=== PATIENT | female | born 1995 | race Caucasian/White ===

== ENCOUNTER 2017-04-19 18:50 | Inpatient (IN) | payer MEDICAID ==
--- NOTE | 2017-04-19 19:10 | PCM.PREANE ---
Preanesthetic Assessment - Procedure Proposed Procedure: RADHA - Anesthesia/Transfusion/Family Hx Anesthesia History: No Prior Anesthesia Transfusion History: No Prior Transfusion(s) - Review of Systems General: No Symptoms Pulmonary: No Symptoms Cardiovascular: No Symptoms Gastrointestinal: No Symptoms Neurological: No Symptoms Other: Reports: None - Physical Assessment ASA Class: 1 Mental Status: Alert & Oriented x3 Dentition: Reports: Normal Dentition ROM/Head Extension: Full Lungs: Clear to Auscultation, Normal Respiratory Effort Cardiovascular: Regular Rate, Regular Rhythm - Allergies Allergies/Adverse Reactions: Allergies Allergy/AdvReac Type Severity Reaction Status Date / Time No Known Allergies Allergy Verified 02/08/17 15:35 - Blood Blood Available: Yes Product(s) Available: PRBC - Acknowledgements Anesthesia Type Planned: Epidural Pt an Appropriate Candidate for the Planned Anesthesia: Yes Alternatives and Risks of Anesthesia Discussed w Pt/Guardian: Yes Pt/Guardian Understands and Agrees with Anesthesia Plan: Yes PreAnesthesia Questionnaire - Past Health History Medical/Surgical History: Denies Medical/Surgical History HEENT History: Reports: None Cardiovascular History: Reports: None Respiratory History: Reports: None Gastrointestinal History: Reports: None Genitourinary History: Reports: None : 1 Para: 0 Musculoskeletal History: Reports: None Neurological History: Reports: None Psychiatric History: Reports: None Endocrine/Metabolic History: Reports: None Hematologic History: Reports: None Immunologic History: Reports: None - Past Surgical History Head Surgeries/Procedures: Reports: None
[2017-04-19] MEDS ORDERED: Water For Irrigation,Sterile 1,000 ML Container IRR PRN (19:19)
[2017-04-19] MEDS ORDERED: Nalbuphine 10 MG/1 ML Vial IVPUSH PRN (19:19)
[2017-04-19] MEDS ORDERED: Misoprostol 200 MCG Tab PO PRN (19:19)
[2017-04-19] MEDS ORDERED: Sodium Chloride 0.9% 2.5 ML Syringe FLUSH PRN (19:19)
[2017-04-19] MEDS ORDERED: Butorphanol 1 MG/ML SDV IVPUSH PRN (19:19)
[2017-04-19] MEDS ORDERED: Carboprost Tromethamine 250 MCG/1 ML Amp IM PRN (19:19)
[2017-04-19] MEDS ORDERED: Sodium Chloride 0.9% 10 ML Syringe FLUSH PRN (19:19)
[2017-04-19] MEDS ORDERED: Methylergonovine 0.2 MG/1 ML Amp IM PRN (19:19)
[2017-04-19] MEDS ORDERED: Lidocaine 1% 50 ML MDV INJECT PRN (19:19)
[2017-04-19] MEDS ORDERED: Oxytocin/0.9 % Sodium Chloride 30 UNIT/500 ML BAG IV SCH (19:30)
[2017-04-19] MEDS ORDERED: fentaNYL 100 MCG/2 ML SDV ONE (20:43)
[2017-04-19] MEDS ORDERED: Ropivacaine HCl/PF 100 ML ONE (20:43)
[2017-04-19] MEDS: Lactated Ringers 1,000 ML IV SCH ×2 (21:16→23:01)
[2017-04-20] MEDS ORDERED: Oxytocin/0.9 % Sodium Chloride 30 UNIT/500 ML BAG IV SCH (04:15)
[2017-04-20] MEDS ORDERED: Ropivacaine HCl/PF 100 ML ONE (07:30)
[2017-04-20] MEDS: Lactated Ringers 1,000 ML IV SCH (08:00)
[2017-04-20] MEDS ORDERED: Benzocaine/Menthol 20%-0.5% Spray 78 GM Cannister TOP PRN (11:59)
[2017-04-20] MEDS ORDERED: Ibuprofen 800 MG Tab PO PRN (11:59)
[2017-04-20] MEDS ORDERED: Docusate Sodium 100 MG Cap PO PRN (11:59)
[2017-04-20] MEDS ORDERED: Ibuprofen 400 MG Tab PO PRN (11:59)
[2017-04-20] MEDS ORDERED: Acetaminophen 500 MG Tab PO PRN (11:59)
[2017-04-20] MEDS ORDERED: Lanolin 100% Cream 7 GM Tube TOP PRN (11:59)
[2017-04-20] MEDS ORDERED: Witch Hazel Medicated Pads 40/Jar TOP PRN (11:59)
[2017-04-20] MEDS ORDERED: Bisacodyl 10 MG Supp RECTAL PRN (11:59)
[2017-04-20] MEDS: Acetaminophen/oxyCODONE 325-5 MG Tab PO PRN ×2 (13:43→20:22)
[2017-04-20] MEDS: Acetaminophen 500 MG Tab PO PRN (17:40)
--- NOTE | 2017-04-21 01:45 | OR ---
SURGEON: NANCY ALCOCER DATE OF PROCEDURE: 04/20/2017 PREOPERATIVE DIAGNOSIS: A 21-year-old, G1, P0, admitted in active labor, POSTOPERATIVE DIAGNOSIS: Status post normal spontaneous vaginal delivery, uncomplicated. FINDINGS: Live male , delivered at 11:32 a.m. was 8 and 9. Weight was 3590 grams. There was a cord noted around the neck. There was a first-degree laceration that was sutured also. 3 VC COMPLICATIONS: None. ESTIMATED BLOOD LOSS: 300. BRIEF HISTORY: I was notified the patient was admitted in active labor. The patient made normal progress in labor and i was notified the patient was fully dilated at around 11 o'clock. The patient pushed for about 30 minutes to 1 hour. PROCEDURE: With the patient's pushing effort, the patient delivered the head subsequently by the shoulders after reducing the cord around the neck . The shoulder was delivered and the body was also subsequently delivered. The infant was suctioned. The cord was clamped and cut, and infant was handed over to the nursery nurse. Then, the cord blood gas was also obtained . The placenta was then delivered via controlled cord traction and after delivery, the uterus was noted to be firm. Pitocin was started. Then, the perineum was inspected and first-degree laceration was noted and was repaired with 3-0 Vicryl. Hemostasis was noted. The patient tolerated the procedure well. All instrument and pad counts were correct x2. Dr. Alcocer was present for the entire procedure. JUWAN RENNER /[id number] JOSE RAFAEL
--- NOTE | 2017-04-21 03:56 | PCM.PNPP ---
- General Info Date of Service: 04/21/17 Admission Dx/Problem (Free Text): 21uo P1 s/p uncomplicated Subjective Update: Patient seen at bedside , has good pain control , normal lochia . denies any complains Functional Status: Reports: Pain Controlled, Tolerating Diet, Ambulating, Urinating - Review of Systems General: Reports: No Symptoms HEENT: Reports: No Symptoms Pulmonary: Reports: No Symptoms Cardiovascular: Reports: No Symptoms Gastrointestinal: Reports: No Symptoms Genitourinary: Reports: No Symptoms Musculoskeletal: Reports: No Symptoms Skin: Reports: No Symptoms Neurological: Reports: No Symptoms Psychiatric: Reports: No Symptoms - General Info Date of Service: 04/21/17 - Patient Data Vital Signs - Most Recent: Last Vital Signs Temp 36.9 C 04/20/17 19:18 Pulse 97 04/20/17 19:18 Resp 16 04/20/17 19:18 BP 107/60 04/20/17 19:18 Pulse Ox 97 04/20/17 19:18 Weight - Most Recent: 64.41 kg Med Orders - Current: Current Medications Acetaminophen (Tylenol Extra Strength) 500 mg PO Q4H PRN PRN Reason: Pain Acetaminophen (Tylenol Extra Strength) 1,000 mg PO Q4H PRN PRN Reason: Pain Last Admin: 04/20/17 17:40 Dose: 1,000 mg Benzocaine/Menthol (Dermoplast Pain Relief 20%-0.5% Orefield) 78 gm TOP ASDIRECTED PRN PRN Reason: Perineal Comfort Measure Last Admin: 04/20/17 13:15 Dose: 1 canister Bisacodyl (Dulcolax) 10 mg RECTAL .ONCE PRN PRN Reason: Constipation Docusate Sodium (Colace) 100 mg PO BID PRN PRN Reason: Constipation Last Admin: 04/20/17 22:41 Dose: 100 mg Emollient Ointment (Lansinoh Hpa) 0 gm TOP ASDIRECTED PRN PRN Reason: Sore Nipples Oxytocin/Sodium Chloride (Oxytocin 30 Unit/500 Ml-Ns) 30 unit in 500 mls @ 2 mls/hr IV TITRATE DEJON; 2 MUNITS/MIN PRN Reason: Protocol Last Infusion: 04/20/17 08:31 Dose: 6 munits/min, 6 mls/hr Ibuprofen (Motrin) 400 mg PO Q4H PRN PRN Reason: Pain Ibuprofen (Motrin) 800 mg PO Q6H PRN PRN Reason: Pain Last Admin: 04/20/17 13:13 Dose: 800 mg Oxycodone/Acetaminophen (Percocet 325-5 Mg) 1 - 2 tab PO Q6H PRN PRN Reason: pain Last Admin: 04/20/17 20:22 Dose: 2 tab Sodium Chloride (Saline Flush) 10 ml FLUSH ASDIRECTED PRN PRN Reason: Keep Vein Open Sodium Chloride (Saline Flush) 2.5 ml FLUSH ASDIRECTED PRN PRN Reason: Keep Vein Open Witch Arelis (Tucks) 1 pad TOP ASDIRECTED PRN PRN Reason: comfort care Last Admin: 04/20/17 20:24 Dose: 1 applic Discontinued Medications Butorphanol Tartrate (Stadol) 1 mg IVPUSH Q1H PRN PRN Reason: Pain Carboprost Tromethamine (Hemabate Ds) 250 mcg IM ASDIRECTED PRN PRN Reason: Post Hemorrhage Fentanyl (Sublimaze) Confirm Administered Dose 100 mcg .ROUTE .STK-MED ONE Stop: 04/19/17 20:44 Lactated Ringer's (Ringers, Lactated) 1,000 mls @ 150 mls/hr IV ASDIRECTED DEJON Last Admin: 04/20/17 08:00 Dose: 150 mls/hr Oxytocin/Sodium Chloride (Oxytocin 30 Unit/500 Ml-Ns) 30 unit in 500 mls @ 999 mls/hr IV TITRATE [facility] Ropivacaine (Naropin 0.2%) Confirm Administered Dose 100 mls @ as directed .ROUTE .STK-MED ONE Stop: 04/19/17 20:44 Ropivacaine (Naropin 0.2%) Confirm Administered Dose 100 mls @ as directed .ROUTE .STK-MED ONE Stop: 04/20/17 07:31 Lidocaine HCl (Xylocaine 1%) 50 ml INJECT .ONCE PRN PRN Reason: Laceration repair Methylergonovine Maleate (Methergine) 0.2 mg IM ASDIRECTED PRN PRN Reason: Post Hemorrhage Misoprostol (Cytotec) 200 mcg PO .ONCE PRN PRN Reason: Post Hemorrhage Nalbuphine HCl (Nubain) 10 mg IVPUSH Q1H PRN PRN Reason: Pain (severe 7-10) Sterile Water (Sterile Water For Irrigation) 1,000 ml IRR ASDIRECTED PRN PRN Reason: delivery Last Admin: 04/20/17 11:32 Dose: 1,000 ml - Infant Interaction Support Person: , Mother - Recovery Exam Fundal Tone: Firm Fundal Level: At Umbilicus Fundal Placement: Midline Lochia Amount: Scant, Small Lochia Color: Rubra/Red Perineum Description: Intact, Minimal Bruising/Swelling, Edematous Episiotomy/Laceration: Approximated Bladder Status: Nonpalpable Urinary Elimination: Voided - Exam General: Alert, Oriented Lungs: Clear to Auscultation, Normal Respiratory Effort Cardiovascular: Regular Rate, Regular Rhythm GI/Abdominal Exam: Normal Bowel Sounds Extremities: Normal Inspection Psy/Mental Status: Alert - Problem List & Annotations (1) Vaginal delivery SNOMED Code(s): 265244916 Code(s): O80 - ENCOUNTER FOR FULL-TERM UNCOMPLICATED DELIVERY Status: Acute Current Visit: Yes - Problem List Review Problem List Initiated/Reviewed/Updated: Yes - My Orders Last 24 Hours: My Active Orders 04/20/17 11:59 Patient Status [ADT] Routine May Shower [RC] ASDIRECTED Up ad Rona [RC] ASDIRECTED Vital Signs [RC] PER UNIT ROUTINE Acetaminophen [Tylenol Extra Strength] 1,000 mg PO Q4H PRN Acetaminophen [Tylenol Extra Strength] 500 mg PO Q4H PRN Benzocaine/Menthol [Dermoplast Pain Relief 20%-0.5% Orefield] 78 gm TOP ASDIRECTED PRN Bisacodyl [Dulcolax] 10 mg RECTAL .ONCE PRN Docusate Sodium [Colace] 100 mg PO BID PRN Ibuprofen [Motrin] 400 mg PO Q4H PRN Ibuprofen [Motrin] 800 mg PO Q6H PRN Lanolin [Lansinoh HPA] See Dose Instructions TOP ASDIRECTED PRN Witch Arelis [Tucks] 1 pad TOP ASDIRECTED PRN Assess Lochia [WOMSER] Per Unit Routine Assess Uterine Involution [WOMSER] Per Unit Routine Peripheral IV Discontinue [OM.PC] Routine Resuscitation Status Routine 04/20/17 12:06 Acetaminophen/oxyCODONE [Percocet 325-5 MG] 1 - 2 tab PO Q6H PRN 04/21/17 05:11 HEMOGLOBIN/HEMATOCRIT,HH [HEME] Routine - Assessment Assessment:: 21yo P1 s/p normal vaginal delivery uncomplicated - Plan Plan:: Pain control with OTC tylenol and motrin Encourage Nothing in Vagina for 6 week Call Hospital if fever > 101 , foul smelling lochia and abdominal pain
[2017-04-21] MEDS: Acetaminophen/oxyCODONE 325-5 MG Tab PO PRN (09:09)
--- NOTE | 2017-04-21 09:16 | PCM48HPAN ---
Post Anesthesia Note - EVALUATION WITHIN 48HRS OF ANESTHETIC Vital Signs in Normal Range: Yes Patient Participated in Evaluation: Yes Respiratory Function Stable: Yes Airway Patent: Yes Cardiovascular Function Stable: Yes Hydration Status Stable: Yes Pain Control Satisfactory: Yes Nausea and Vomiting Control Satisfactory: Yes Mental Status Recovered: Yes
[2017-04-21 11:17] VITALS: BP 123/68
[2017-04-21] MEDS: Acetaminophen 500 MG Tab PO PRN (13:17)
== END 2017-04-21 16:00 | disposition home or self-care (01) | DRG 775 ==
LOC: MW.OBCHECK 18:50 → MW.OB 18:54 → MW.OBCHECK 19:19 → MW.OB 19:19 → OBSVTOIN 04-20 11:59 → MW.OB 04-20 12:00
PROVIDERS: ADMIT Obstetrics & Gynecology; ATTEND Obstetrics & Gynecology
PROC: 10E0XZZ Delivery of Products of Conception, External Approach (ICD-10-PCS; principal; 2017-04-20)
PROC: 0HQ9XZZ Repair Perineum Skin, External Approach (ICD-10-PCS; 2017-04-20)
DX: O70.0 First degree perineal laceration during delivery (principal); O69.1XX0 Labor and delivery complicated by cord around neck, with compression, not applicable or unspecified; Z3A.39 39 weeks gestation of pregnancy; Z37.0 Single live birth
CPT/HCPCS: 36415; 59025; 59409; 85014; 85018; 85027; 86850; 86900; 86901; A9270-GY; J2590; J2795; J3010; J7120

== ENCOUNTER 2017-07-24 03:50 | Emergency (ER) | payer SELFPAY ==
--- NOTE | 2017-07-24 05:02 | EDM.PDOC ---
ED HPI GENERAL MEDICAL PROBLEM - General Chief Complaint: Respiratory Problem Stated Complaint: COUGHING Time Seen by Provider: 07/24/17 05:02 - History of Present Illness INITIAL COMMENTS - FREE TEXT/NARRATIVE: HISTORY AND PHYSICAL: History of present illness: Patient is a 21-year-old female presents with a concern of cough and cold symptoms over last several days she has an who has had similar she denies fever chills nausea vomiting diarrhea or other complaints Review of systems: As per history of present illness and below otherwise all systems reviewed and negative. Past medical history: As per history of present illness and as reviewed below otherwise noncontributory. Surgical history: As per history of present illness and as reviewed below otherwise noncontributory. Social history: No reported history of drug or alcohol abuse. Family history: As per history of present illness and as reviewed below otherwise noncontributory. Physical exam: HEENT: Atraumatic, normocephalic, pupils reactive, negative for conjunctival pallor or scleral icterus, mucous membranes moist, throat clear, neck supple, nontender, trachea midline. Lungs: Clear to auscultation, breath sounds equal bilaterally, chest nontender. Heart: S1S2, regular, negative for clicks, rubs, or JVD. Abdomen: Soft, nondistended, nontender. Negative for masses or hepatosplenomegaly. Negative for costovertebral tenderness. Pelvis: Stable nontender. Genitourinary: Deferred. Rectal: Deferred. Extremities: Atraumatic, negative for cords or calf pain. Neurovascular unremarkable. Neuro: Awake, alert, oriented. Cranial nerves II through XII unremarkable. Cerebellum unremarkable. Motor and sensory unremarkable throughout. Exam nonfocal. Diagnostics: Influenza screen chest x-ray Therapeutics: None Impression: # 1 viral syndrome Definitive disposition and diagnosis as appropriate pending reevaluation and review of above. throat Pain Score (Numeric/FACES): 7 - Related Data Allergies Allergy/AdvReac Type Severity Reaction Status Date / Time banana Allergy Swelling Verified 07/24/17 04:14 Home Meds: Home Meds . 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: Musculoskeletal History: Reports: None Neurological History: Reports: None Psychiatric History: Reports: None Endocrine/Metabolic History: Reports: None Hematologic History: Reports: None Immunologic History: Reports: None Oncologic (Cancer) History: Reports: None Dermatologic History: Reports: None - Infectious Disease History Infectious Disease History: Reports: None - Past Surgical History Head Surgeries/Procedures: Reports: None Social & Family History - Family History Family Medical History: Noncontributory - Tobacco Use Smoking Status *Q: Never Smoker Second Hand Smoke Exposure: No - Caffeine Use Caffeine Use: Reports: None - Recreational Drug Use Recreational Drug Use: No ED ROS GENERAL - Review of Systems Review Of Systems: ROS reveals no pertinent complaints other than HPI. ED EXAM, GENERAL - Physical Exam Exam: See Below (See dictation) Course - Vital Signs Last Recorded V/S: Last Vital Signs Temp 36.8 C 07/24/17 04:14 Pulse 107 H 07/24/17 04:14 Resp 18 07/24/17 04:14 BP 115/59 L 07/24/17 04:14 Pulse Ox 97 07/24/17 04:14 - Orders/Labs/Meds Orders: Active Orders 24 hr Category Date Time Status Chest 1V Frontal [CR] Stat Exams 07/24/17 04:12 Taken CULTURE STREP A CONFIRMATION [RM] Stat Lab 07/24/17 04:15 Results STREP SCRN A RAPID W CULT CONF [RM] Stat Lab 07/24/17 04:15 Results Departure - Departure Time of Disposition: 05:01 Disposition: Home, Self-Care 01 Condition: Good Clinical Impression: Viral syndrome - Discharge Information Referrals: PCP,None [Primary Care Provider] - Additional Instructions: The following information is given to patients seen in the emergency department who are being discharged to home. This information is to outline your options for follow-up care. We provide all patients seen in our emergency department with a follow-up referral. The need for follow-up, as well as the timing and circumstances, are variable depending upon the specifics of your emergency department visit. If you don't have a primary care physician on staff, we will provide you with a referral. We always advise you to contact your personal physician following an emergency department visit to inform them of the circumstance of the visit and for follow-up with them and/or the need for any referrals to a consulting specialist. The emergency department will also refer you to a specialist when appropriate. This referral assures that you have the opportunity for followup care with a specialist. All of these measure are taken in an effort to provide you with optimal care, which includes your followup. Under all circumstances we always encourage you to contact your private physician who remains a resource for coordinating your care. When calling for followup care, please make the office aware that this follow-up is from your recent emergency room visit. If for any reason you are refused follow-up, please contact the [facility] emergency department at and asked to speak to the emergency department charge nurse. Push fluids Motrin/Tylenol as directed follow-up private medical doctor as needed as discussed and return as needed as discussed - My Orders Last 24 Hours: My Active Orders 07/24/17 04:12 Chest 1V Frontal [CR] Stat 07/24/17 04:15 CULTURE STREP A CONFIRMATION [RM] Stat STREP SCRN A RAPID W CULT CONF [RM] Stat - Assessment/Plan Last 24 Hours: My Active Orders 07/24/17 04:12 Chest 1V Frontal [CR] Stat 07/24/17 04:15 CULTURE STREP A CONFIRMATION [RM] Stat STREP SCRN A RAPID W CULT CONF [RM] Stat
[2017-07-24 05:35] VITALS: BP 122/66
--- NOTE | 2017-07-26 16:59 | CR ---
EXAM DATE: 07/24/17 PATIENT'S AGE: 21 Patient: EMMIE SY Facility: [place], [place] Site . Site : 1997 Study: XRay Chest [id number]/20/2018 4:37:01 AM Ordering Physician: Doctor Louise Final Report: INDICATION: SOB, CP, congestion TECHNIQUE: Chest 1 view COMPARISON: None FINDINGS: Cardiovascular and mediastinum: Heart size and vasculature are normal in caliber and appearance. Mediastinum is within normal limits. Lungs and pleural space: No focal consolidation. No sign of pleural effusion. No pneumothorax. Bones and soft tissues: No significant findings. IMPRESSION: No acute cardiopulmonary disease Dictated by Nima Danielson MD @ 07/24/2017 4:55:55 AM Dictated by: Nima Danielson MD @ 07/24/2017 04:56:04 (Electronic Signature) Report Signed by Proxy. [email or web address]
== END 2017-07-24 05:28 | disposition home or self-care (01) ==
LOC: MW.ED 03:50
DX: B34.9 Viral infection, unspecified (principal)
CPT/HCPCS: 71045; 71045-26; 87081; 87804; 87880; 99283

== ENCOUNTER 2018-10-30 17:36 | Emergency (ER) | payer MEDICAID ==
[2018-10-30] MEDS ORDERED: Sodium Chloride 0.9% 1,000 ML IV ONE (17:38)
--- NOTE | 2018-10-30 17:40 | EDM.PDOC ---
ED HPI GENERAL MEDICAL PROBLEM - General Stated Complaint: dizzy, Time Seen by Provider: 10/30/18 17:37 Source of Information: Reports: Patient History Limitations: Reports: No Limitations - History of Present Illness INITIAL COMMENTS - FREE TEXT/NARRATIVE: HISTORY AND PHYSICAL: History of present illness: Patient is a 23-year-old female who presents to the emergency room with complaints of nausea, vomiting, low abdominal pain during . Patient reports that she believes she is 7 weeks . She had had multiple bouts of nausea and vomiting over the past several days. Concerned as to day she had noted some streaking of blood in her emesis. She denies any fever, chills, chest pain, shortness of breath or cough. She denies any diarrhea, constipation or dysuria. She has been eating and drinking appropriately. 3, para 1. LMP: September 04, 2018. Review of systems: As per history of present illness and below otherwise all systems reviewed and negative. Past medical history: As per history of present illness and as reviewed below otherwise noncontributory. Surgical history: As per history of present illness and as reviewed below otherwise noncontributory. Social history: See social history for further information Family history: As per history of present illness and as reviewed below otherwise noncontributory. Physical exam: General: Well-developed and well-nourished 23-year-old female. Alert and oriented. Nontoxic appearing and in no acute distress. HEENT: Atraumatic, normocephalic, pupils equal and reactive bilaterally, negative for conjunctival pallor or scleral icterus, mucous membranes moist, TMs normal bilaterally, throat clear, neck supple, nontender, trachea midline. No drooling or trismus noted. No meningeal signs. No hot potato voice noted. Lungs: Clear to auscultation, breath sounds equal bilaterally, chest nontender. Heart: S1S2, regular rate and rhythm without overt murmur Abdomen: Soft, nondistended, nontender. Negative for masses or hepatosplenomegaly. Negative for costovertebral tenderness. Pelvis: Stable nontender. Genitourinary: Deferred. Rectal: Deferred. Skin: Intact, warm, dry. No lesions or rashes noted. Extremities: Atraumatic, moves all extremities per self without difficulty or deficits, negative for cords or calf pain. Neurovascular unremarkable. Neuro: Awake, alert, oriented. Cranial nerves II through XII unremarkable. Cerebellum unremarkable. Motor and sensory unremarkable throughout. Exam nonfocal. Notes: Lab work is unremarkable urine culture has been added to the UA is there is a few bacteria. Positive , we will do a transvaginal OB ultrasound to confirm IUP. Lab work is unremarkable. Ultrasound shows an intrauterine gestational sac which contains a yolk sac but no definite pole. Could represent early IUP although blighted ovum in not excluded. Recommended correlation with beta hCG levels and follow-up with HEAD OF [employer]NER DEVELOPMENT. There is a complex right ovarian cyst. This information was shared with the patient. I did encourage her to follow-up with an HEAD OF PARTNER DEVELOPMENT for reevaluation and management. Supportive care measures were reviewed and discussed. Voices understanding and is agreeable to plan of care. Denies any further questions or concerns at this time. Diagnostics: CBC, CMP, UA, urine , transvaginal US, quant HCG Therapeutics: IV fluid, Zofran Prescription: Zofran Impression: Threatened Miscarriage Plan: 1. Pelvic rest until you follow-up with an HEAD OF [employer]NER DEVELOPMENT 2. Tylenol as needed for pain management. 3. Establish care and follow up with an OBGYN as we discussed. Return to the ED as needed and as discussed. Definitive disposition and diagnosis as appropriate pending reevaluation and review of above. Lower Abdominal Pain Score (Numeric/FACES): 7 - Related Data Allergies Allergy/AdvReac Type Severity Reaction Status Date / Time banana Allergy Swelling Verified 10/30/18 17:43 Home Meds: Home Meds . [No Known Home Meds] 07/24/17 [History] Past Medical History - Past Health History Medical/Surgical History: Denies Medical/Surgical History HEENT History: Reports: None Cardiovascular History: Reports: None Respiratory History: Reports: None Gastrointestinal History: Reports: None Genitourinary History: Reports: None HEAD OF PARTNER DEVELOPMENT History: Reports: Other HEAD OF PARTNER DEVELOPMENT History: A0 Musculoskeletal History: Reports: None Neurological History: Reports: None Psychiatric History: Reports: None Endocrine/Metabolic History: Reports: None Hematologic History: Reports: None Immunologic History: Reports: None Oncologic (Cancer) History: Reports: None Dermatologic History: Reports: None - Infectious Disease History Infectious Disease History: Reports: None - Past Surgical History Head Surgeries/Procedures: Reports: None Social & Family History - Family History Family Medical History: Noncontributory - Caffeine Use Caffeine Use: Reports: None ED ROS GENERAL - Review of Systems Review Of Systems: ROS reveals no pertinent complaints other than HPI. ED EXAM, DIZZINESS - Physical Exam Exam: See Below Course - Vital Signs Last Recorded V/S: Last Vital Signs Temp 98.1 F 10/30/18 17:44 Pulse 78 10/30/18 17:44 Resp 18 10/30/18 17:44 BP 109/70 10/30/18 17:44 Pulse Ox 99 10/30/18 17:44 - Orders/Labs/Meds Labs: Laboratory Tests 10/30/18 10/30/18 10/30/18 Range/Units 17:55 17:55 17:55 WBC 8.49 (4.0-11.0) K/uL RBC 5.02 (4.30-5.90) M/uL Hgb 15.5 (12.0-16.0) g/dL Hct 45.2 (36.0-46.0) % MCV 90.0 (80.0-98.0) fL MCH 30.9 (27.0-32.0) pg MCHC 34.3 (31.0-37.0) g/dL RDW Std Deviation 43.2 (28.0-62.0) fl RDW Coeff of Trista 13 (11.0-15.0) % Plt Count 250 (150-400) K/uL MPV 11.00 (7.40-12.00) fL Neut % (Auto) 60.4 (48.0-80.0) % Lymph % (Auto) 25.3 (16.0-40.0) % Travis % (Auto) 13.9 (0.0-15.0) % Eos % (Auto) 0.2 (0.0-7.0) % Baso % (Auto) 0.2 (0.0-1.5) % Neut # (Auto) 5.1 (1.4-5.7) K/uL Lymph # (Auto) 2.2 (0.6-2.4) K/uL Travis # (Auto) 1.2 H (0.0-0.8) K/uL Eos # (Auto) 0.0 (0.0-0.7) K/uL Baso # (Auto) 0.0 (0.0-0.1) K/uL Nucleated RBC % 0.0 /100WBC Nucleated RBCs # 0 K/uL Sodium (136-145) mmol/L Potassium (3.5-5.1) mmol/L Chloride (98-107) mmol/L Carbon Dioxide (21.0-32.0) mmol/L BUN (7.0-18.0) mg/dL Creatinine (0.6-1.0) mg/dL Est Cr Clr Drug Dosing mL/min Estimated GFR (MDRD) ml/min Glucose (74-106) mg/dL Calcium (8.5-10.1) mg/dL Total Bilirubin (0.2-1.0) mg/dL AST (15-37) IU/L ALT (14-63) IU/L Alkaline Phosphatase (46-116) U/L Total Protein (6.4-8.2) g/dL Albumin (3.4-5.0) g/dL Globulin (2.6-4.0) g/dL Albumin/Globulin Ratio (0.9-1.6) HCG, Quant mIU/mL Urine Color YELLOW Urine Appearance HAZY Urine pH 6.0 (5.0-8.0) Ur Specific Mchenry >= 1.030 (1.001-1.035) Urine Protein TRACE H (NEGATIVE) mg/dL Urine Glucose (UA) NEGATIVE (NEGATIVE) mg/dL Urine Ketones >=80 (NEGATIVE) mg/dL Urine Occult Blood SMALL H (NEGATIVE) Urine Nitrite NEGATIVE (NEGATIVE) Urine Bilirubin SMALL H (NEGATIVE) Urine Ictotest NEGATIVE Urine Urobilinogen 0.2 (<2.0) EU/dL Ur Leukocyte Esterase NEGATIVE (NEGATIVE) Urine RBC 0-2 (0-2/HPF) Urine WBC 0-3 (0-5/HPF) Ur Epithelial Cells MODERATE (NONE-FEW) Urine Bacteria FEW (NEGATIVE) Urine Mucus LIGHT (NONE-MOD) Urine HCG, Qual POSITIVE (NEGATIVE) 10/30/18 10/30/18 Range/Units 17:55 17:55 WBC (4.0-11.0) K/uL RBC (4.30-5.90) M/uL Hgb (12.0-16.0) g/dL Hct (36.0-46.0) % MCV (80.0-98.0) fL MCH (27.0-32.0) pg MCHC (31.0-37.0) g/dL RDW Std Deviation (28.0-62.0) fl RDW Coeff of Trista (11.0-15.0) % Plt Count (150-400) K/uL MPV (7.40-12.00) fL Neut % (Auto) (48.0-80.0) % Lymph % (Auto) (16.0-40.0) % Travis % (Auto) (0.0-15.0) % Eos % (Auto) (0.0-7.0) % Baso % (Auto) (0.0-1.5) % Neut # (Auto) (1.4-5.7) K/uL Lymph # (Auto) (0.6-2.4) K/uL Travis # (Auto) (0.0-0.8) K/uL Eos # (Auto) (0.0-0.7) K/uL Baso # (Auto) (0.0-0.1) K/uL Nucleated RBC % /100WBC Nucleated RBCs # K/uL Sodium 138 (136-145) mmol/L Potassium 3.3 L (3.5-5.1) mmol/L Chloride 102 (98-107) mmol/L Carbon Dioxide 20.3 L (21.0-32.0) mmol/L BUN 10 (7.0-18.0) mg/dL Creatinine 0.9 (0.6-1.0) mg/dL Est Cr Clr Drug Dosing 85.38 mL/min Estimated GFR (MDRD) > 60.0 ml/min Glucose 84 (74-106) mg/dL Calcium 9.3 (8.5-10.1) mg/dL Total Bilirubin 0.8 (0.2-1.0) mg/dL AST 16 (15-37) IU/L ALT 22 (14-63) IU/L Alkaline Phosphatase 79 (46-116) U/L Total Protein 8.6 H (6.4-8.2) g/dL Albumin 4.3 (3.4-5.0) g/dL Globulin 4.3 H (2.6-4.0) g/dL Albumin/Globulin Ratio 1.0 (0.9-1.6) HCG, Quant 98912.0 mIU/mL Urine Color Urine Appearance Urine pH (5.0-8.0) Ur Specific Mchenry (1.001-1.035) Urine Protein (NEGATIVE) mg/dL Urine Glucose (UA) (NEGATIVE) mg/dL Urine Ketones (NEGATIVE) mg/dL Urine Occult Blood (NEGATIVE) Urine Nitrite (NEGATIVE) Urine Bilirubin (NEGATIVE) Urine Ictotest Urine Urobilinogen (<2.0) EU/dL Ur Leukocyte Esterase (NEGATIVE) Urine RBC (0-2/HPF) Urine WBC (0-5/HPF) Ur Epithelial Cells (NONE-FEW) Urine Bacteria (NEGATIVE) Urine Mucus (NONE-MOD) Urine HCG, Qual (NEGATIVE) Meds: Medications Discontinued Medications Generic Name Dose Route Start Last Admin Trade Name Freq PRN Reason Stop Dose Admin Sodium Chloride 1,000 mls @ 999 mls/hr 10/30/18 17:38 10/30/18 18:00 Normal Saline IV 10/30/18 18:38 999 mls/hr STAT ONE Administration Ondansetron HCl 4 mg 10/30/18 17:50 10/30/18 18:00 Zofran IVPUSH 10/30/18 17:51 4 mg ONETIME ONE Administration Departure - Departure Time of Disposition: 19:43 Disposition: Home, Self-Care 01 Clinical Impression: Threatened - Discharge Information Instructions: Threatened Miscarriage, [id number] Referrals: PCP,None [Primary Care Provider] - Forms: ED Department Discharge Additional Instructions: The following information is given to patients seen in the emergency department who are being discharged to home. This information is to outline your options for follow-up care. We provide all patients seen in our emergency department with a follow-up referral. The need for follow-up, as well as the timing and circumstances, are variable depending upon the specifics of your emergency department visit. If you don't have a primary care physician on staff, we will provide you with a referral. We always advise you to contact your personal physician following an emergency department visit to inform them of the circumstance of the visit and for follow-up with them and/or the need for any referrals to a consulting specialist. The emergency department will also refer you to a specialist when appropriate. This referral assures that you have the opportunity for follow-up care with a specialist. All of these measure are taken in an effort to provide you with optimal care, which includes your follow-up. Under all circumstances we always encourage you to contact your private physician who remains a resource for coordinating your care. When calling for follow-up care, please make the office aware that this follow-up is from your recent emergency room visit. If for any reason you are refused follow-up, please contact the [facility] Emergency Department at and asked to speak to the emergency department charge nurse. [facility] [address] [place] [id number] [address] 1. Pelvic rest until you follow-up with an [employer] OF PARTNER DEVELOPMENT 2. Tylenol as needed for pain management. 3. Establish care and follow up with an OBGYN as we discussed. Return to the ED as needed and as discussed.
[2018-10-30] MEDS ORDERED: Ondansetron 4 MG/2 ML SDV IVPUSH ONE (17:50)
[2018-10-30 18:32] LABS: CHLORIDE,CL 102 mmol/L (98-107); SODIUM,NA 138 mmol/L (136-145)
--- NOTE | 2018-10-30 19:40 | US ---
INDICATION: Abdominal pain. Nausea and vomiting. TECHNIQUE: Transvaginal imaging. COMPARISON: None. FINDINGS: Eccentrically within the uterus, there is a fluid collection ( "sac") with apparent surrounding decidual reaction, likely representing an intrauterine gestational sac. Mean sac diameter is 1.46 cm, which corresponds to 6 weeks and 4 days. There does appear to be a yolk sac, although a pole is not definitely identified. No perigestational hemorrhage. Both ovaries are normal in size. In the right ovary, appears to be a complex ovarian cyst measuring approximately 2 cm which could represent a hemorrhagic corpus luteal cyst. The left ovary appears unremarkable. No free fluid in the pelvis. IMPRESSION: 1. There appears be an intrauterine gestational sac which contains a yolk sac but no definite pole is identified. This could represent early IUP although a blighted ovum is not excluded. Recommend correlation with beta HCG levels. Imaging followup as clinically indicated. 2. Complex right ovarian cyst, which could represent a hemorrhagic corpus luteal cyst. Dictated by David Whitlock MD @ 10/30/2018 7:38:15 PM Dictated by: David Whitlock MD @ 10/30/2018 19:38:21 (Electronically Signed)
[2018-10-30 19:57] VITALS: BP 108/61
== END 2018-10-30 19:57 | disposition home or self-care (01) ==
LOC: MW.ED 17:36
DX: O20.0 Threatened abortion (principal); O34.81 Maternal care for other abnormalities of pelvic organs, first trimester; N83.201 Unspecified ovarian cyst, right side; Z91.018 Allergy to other foods; Z3A.01 Less than 8 weeks gestation of pregnancy
CPT/HCPCS: 36415; 76817; 80053; 81001; 81025; 84702; 85025; 96361; 96374; 99284; J2405; J7040; 99283

== ENCOUNTER 2018-11-03 14:07 | Emergency (ER) | payer SELFPAY ==
[2018-11-03] MEDS ORDERED: Sodium Chloride 0.9% 1,000 ML IV ONE (14:25)
--- NOTE | 2018-11-03 14:27 | EDM.PDOC ---
ED HPI GENERAL MEDICAL PROBLEM - General Chief Complaint: General Stated Complaint: WITH DIZZINESS Time Seen by Provider: 11/03/18 14:12 Source of Information: Reports: Patient History Limitations: Reports: No Limitations - History of Present Illness INITIAL COMMENTS - FREE TEXT/NARRATIVE: HISTORY AND PHYSICAL: History of present illness: Patient is a 23-year-old female presents to the ED today with concern of dizziness, nausea, and vomiting and early . Patient was seen on for about 4 days ago for similar symptoms. At that time she had received workup as well as a transvaginal ultrasound. The ultrasound did show an early IUP versus a light of vomiting. Patient was instructed to follow-up with an OB/ PROCESS VALIDATION ENGINEER. Patient states she has not done this and has not called to make an appointment. She states that she does not want to leave the house for an appointment. Patient states she has not drank much fluid over the past several days and feels that this is related to her dizziness. She states when she was in the shower her dizziness was worse and she had to sit down. She denies loss of consciousness. Patient denies vaginal bleeding, abdominal pain, vaginal discharge. Patient denies fever, chills, chest pain, shortness of breath, or cough. Denies headache , neck stiff ness, change in vision, syncope, or near syncope. Denies nausea, vomiting, abdominal pain, diarrhea, constipation, or dysuria. Has not noted any blood in urine or stool. Review of systems: As per history of present illness and below otherwise all systems reviewed and negative. Past medical history: As per history of present illness and as reviewed below otherwise noncontributory. Surgical history: As per history of present illness and as reviewed below otherwise noncontributory. Social history: See social history for further information Family history: As per history of present illness and as reviewed below otherwise noncontributory. Physical exam: General: Patient is alert, oriented, and in no acute distress. Patient laying comfortably on exam table. HEENT: Atraumatic, normocephalic, pupils equal and reactive bilaterally, negative for conjunctival pallor or scleral icterus, mucous membranes moist, TMs normal bilaterally, throat clear, neck supple, nontender, trachea midline. No drooling or trismus noted. No meningeal signs. No hot potato voice noted. Lungs: Clear to auscultation, breath sounds equal bilaterally, chest nontender. Heart: S1S2, regular rate and rhythm without overt murmur Abdomen: Soft, nondistended, nontender. Negative for masses or hepatosplenomegaly. Negative for costovertebral tenderness. Pelvis: Stable nontender. Genitourinary: Deferred. Rectal: Deferred. Skin: Intact, warm, dry. No lesions or rashes noted. Extremities: Atraumatic, negative for cords or calf pain. Neurovascular unremarkable. Neuro: Awake, alert, oriented. Cranial nerves II through XII unremarkable. Cerebellum unremarkable. Motor and sensory unremarkable throughout. Exam nonfocal. Notes: Patient does have Zofran at home and states that this does help. Did have an extensive conversation/warning about marijuana use in and the need to stop this with further monitoring throughout her will occur. Patient expresses her understanding. Discussed the importance for follow-up with an PUBLIC WORKS SUPERVISOR. Patient does express resolution of symptoms with therapeutics. Voices understanding and is agreeable to plan of care. Denies any further questions or concerns at this time. Diagnostics: CBC, CMP, UA, orthostatic vitals, EKG, urine drug screen Therapeutics: Saline Prescription: None Impression: Nausea and vomiting in early Marijuana abuse Plan: 1. Encourage small but frequent sips of fluid to prevent dehydration. You can use Tylenol as directed for pain and discomfort. This is safe to use in . 2. You can use [id number] Unisom and B6 for nausea control in . 3. Follow-up with your PUBLIC WORKS SUPERVISOR as discussed. 4. Return to the ED as needed and as discussed. Definitive disposition and diagnosis as appropriate pending reevaluation and review of above. lower back Pain Score (Numeric/FACES): 5 - Related Data Allergies Allergy/AdvReac Type Severity Reaction Status Date / Time banana Allergy Swelling Verified 11/03/18 14:15 Home Meds: Home Meds Ondansetron [Zofran] 1 tab PO TID PRN 11/03/18 [History] Past Medical History - Past Health History Medical/Surgical History: Denies Medical/Surgical History HEENT History: Reports: None Cardiovascular History: Reports: None Respiratory History: Reports: None Gastrointestinal History: Reports: None Genitourinary History: Reports: None PUBLIC WORKS SUPERVISOR History: Reports: Other PUBLIC WORKS SUPERVISOR History: A0 Musculoskeletal History: Reports: None Neurological History: Reports: None Psychiatric History: Reports: None Endocrine/Metabolic History: Reports: None Hematologic History: Reports: None Immunologic History: Reports: None Oncologic (Cancer) History: Reports: None Dermatologic History: Reports: None - Infectious Disease History Infectious Disease History: Reports: None - Past Surgical History Head Surgeries/Procedures: Reports: None Social & Family History - Family History Family Medical History: Noncontributory - Tobacco Use Smoking Status *Q: Never Smoker - Caffeine Use Caffeine Use: Reports: None - Recreational Drug Use Recreational Drug Use: No ED ROS GENERAL - Review of Systems Review Of Systems: ROS reveals no pertinent complaints other than HPI. ED EXAM, GENERAL - Physical Exam Exam: See Below (See dictation) Course - Vital Signs Last Recorded V/S: Last Vital Signs Temp 35.8 C 11/03/18 14:13 Pulse 73 11/03/18 14:13 Resp 20 11/03/18 14:13 BP 111/60 11/03/18 14:13 Pulse Ox 99 11/03/18 14:13 Orthostatic Blood Pressure [ 117/61 Standing] Orthostatic Blood Pressure [ 111/71 Sitting] Orthostatic Blood Pressure [ 104/57 Supine] - Orders/Labs/Meds Orders: Active Orders 24 hr Category Date Time Status EKG Documentation Completion [RC] STAT Care 11/03/18 14:25 Active Orthostatic Vital Signs [RC] ASDIRECTED Care 11/03/18 14:25 Active COMPREHENSIVE METABOLIC PN,CMP [CHEM] Stat Lab 11/03/18 14:30 Received Labs: Laboratory Tests 11/03/18 11/03/18 11/03/18 Range/Units 14:22 14:22 14:30 WBC 9.94 (4.0-11.0) K/uL RBC 4.68 (4.30-5.90) M/uL Hgb 14.1 (12.0-16.0) g/dL Hct 42.0 (36.0-46.0) % MCV 89.7 (80.0-98.0) fL MCH 30.1 (27.0-32.0) pg MCHC 33.6 (31.0-37.0) g/dL RDW Std Deviation 41.9 (28.0-62.0) fl RDW Coeff of Trista 13 (11.0-15.0) % Plt Count 225 (150-400) K/uL MPV 11.00 (7.40-12.00) fL Neut % (Auto) 66.0 (48.0-80.0) % Lymph % (Auto) 24.0 (16.0-40.0) % Waller % (Auto) 9.6 (0.0-15.0) % Eos % (Auto) 0.3 (0.0-7.0) % Baso % (Auto) 0.1 (0.0-1.5) % Neut # (Auto) 6.6 H (1.4-5.7) K/uL Lymph # (Auto) 2.4 (0.6-2.4) K/uL Waller # (Auto) 1.0 H (0.0-0.8) K/uL Eos # (Auto) 0.0 (0.0-0.7) K/uL Baso # (Auto) 0.0 (0.0-0.1) K/uL Nucleated RBC % 0.0 /100WBC Nucleated RBCs # 0 K/uL Urine Color YELLOW Urine Appearance CLEAR Urine pH 6.0 (5.0-8.0) Ur Specific Waldron >= 1.030 (1.001-1.035) Urine Protein 30 H (NEGATIVE) mg/dL Urine Glucose (UA) NEGATIVE (NEGATIVE) mg/dL Urine Ketones >=80 (NEGATIVE) mg/dL Urine Occult Blood NEGATIVE (NEGATIVE) Urine Nitrite NEGATIVE (NEGATIVE) Urine Bilirubin SMALL H (NEGATIVE) Urine Ictotest NEGATIVE Urine Urobilinogen 0.2 (<2.0) EU/dL Ur Leukocyte Esterase NEGATIVE (NEGATIVE) Urine RBC 0-1 (0-2/HPF) Urine WBC 2-3 (0-5/HPF) Ur Epithelial Cells MODERATE (NONE-FEW) Urine Bacteria FEW (NEGATIVE) Urine Mucus MODERATE (NONE-MOD) Urine Opiates Screen NEGATIVE (NEGATIVE) Ur Oxycodone Screen NEGATIVE (NEGATIVE) Urine Methadone Screen NEGATIVE (NEGATIVE) Ur Barbiturates Screen NEGATIVE (NEGATIVE) Ur Phencyclidine Scrn NEGATIVE (NEGATIVE) Ur Amphetamine Screen NEGATIVE (NEGATIVE) U Methamphetamines Scrn NEGATIVE (NEGATIVE) U Benzodiazepines Scrn NEGATIVE (NEGATIVE) U Cocaine Metab Screen NEGATIVE (NEGATIVE) U Marijuana (THC) Screen POSITIVE (NEGATIVE) Meds: Medications Discontinued Medications Generic Name Dose Route Start Last Admin Trade Name Bobby PRN Reason Stop Dose Admin Sodium Chloride 1,000 mls @ 999 mls/hr 11/03/18 14:25 11/03/18 14:36 Normal Saline IV 11/03/18 15:25 999 mls/hr STAT ONE Administration Departure - Departure Time of Disposition: 15:45 Disposition: Home, Self-Care 01 Clinical Impression: Nausea and vomiting in prior to 22 weeks gestation, Marijuana abuse - Discharge Information Instructions: Morning Sickness, [id number] Referrals: PCP,None [Primary Care Provider] - Forms: ED Department Discharge Additional Instructions: The following information is given to patients seen in the emergency department who are being discharged to home. This information is to outline your options for follow-up care. We provide all patients seen in our emergency department with a follow-up referral. The need for follow-up, as well as the timing and circumstances, are variable depending upon the specifics of your emergency department visit. If you don't have a primary care physician on staff, we will provide you with a referral. We always advise you to contact your personal physician following an emergency department visit to inform them of the circumstance of the visit and for follow-up with them and/or the need for any referrals to a consulting specialist. The emergency department will also refer you to a specialist when appropriate. This referral assures that you have the opportunity for follow-up care with a specialist. All of these measure are taken in an effort to provide you with optimal care, which includes your follow-up. Under all circumstances we always encourage you to contact your private physician who remains a resource for coordinating your care. When calling for follow-up care, please make the office aware that this follow-up is from your recent emergency room visit. If for any reason you are refused follow-up, please contact the [facility] Emergency Department at and asked to speak to the emergency department charge nurse. [facility] [address] [place] [id number] [id number] 1. Encourage small but frequent sips of fluid to prevent dehydration. You can use Tylenol as directed for pain and discomfort. This is safe to use in . 2. You can use [id number] Unisom and B6 for nausea control in . 3. Follow-up with your PUBLIC WORKS SUPERVISOR as discussed. 4. Return to the ED as needed and as discussed. - My Orders Last 24 Hours: My Active Orders 11/03/18 14:25 EKG Documentation Completion [RC] STAT Orthostatic Vital Signs [RC] ASDIRECTED 11/03/18 14:30 COMPREHENSIVE METABOLIC PN,CMP [CHEM] Stat - Assessment/Plan Last 24 Hours: My Active Orders 11/03/18 14:25 EKG Documentation Completion [RC] STAT Orthostatic Vital Signs [RC] ASDIRECTED 11/03/18 14:30 COMPREHENSIVE METABOLIC PN,CMP [CHEM] Stat
[2018-11-03 15:41] LABS: CHLORIDE,CL 102 mmol/L (98-107); SODIUM,NA 137 mmol/L (136-145)
[2018-11-03 15:57] VITALS: BP 111/66
== END 2018-11-03 15:57 | disposition home or self-care (01) ==
LOC: MW.ED 14:07
DX: O21.9 Vomiting of pregnancy, unspecified (principal); O99.321 Drug use complicating pregnancy, first trimester; F12.10 Cannabis abuse, uncomplicated; Z91.018 Allergy to other foods
CPT/HCPCS: 36415; 80053; 80305; 81001; 85025; 93005; 96360; 99283; J7040